=== PATIENT | male | born 1950 | race Caucasian/White ===

== ENCOUNTER 2019-03-27 12:31 | Outpatient (REF) | payer MEDICARE, BC, SELFPAY ==
[2019-03-27 21:32] LABS: ALT 28 U/L (16-63); AST 21 U/L (15-37); Alkaline Phosphatase 65 U/L (46-116); Anion Gap 9.9 mmol/L (3-11); BUN 21 mg/dL (7-18); Bilirubin, Total 0.3 mg/dL (0.2-1.0); CO2 27.1 mmol/L (21.0-32.0); CREATININE 0.93 mg/dL (0.70-1.30); Calcium 9.3 mg/dL (8.5-10.1); Chloride 104 mmol/L (98-107); Glucose 120 mg/dL (70-100); LDH 196 U/L (85-227); Potassium 4.4 mmol/L (3.5-5.1); Sodium 141 mmol/L (136-145); Total Protein 6.4 g/dL (6.4-8.2)
[2019-03-27 21:34] LABS: Abs Immature Grans 0.02 k/cumm (0.0-0.09); Absolute Basophil Count 0.02 k/cumm (0.0-0.2); Absolute Eosinophil Count 0.06 k/cumm (0.0-0.7); Absolute Lymphocyte Count 5.19 k/cumm (1.2-3.4); Absolute Monocyte Count 0.63 k/cumm (0.11-0.7); Absolute Neutrophil Count 4.36 k/cumm (1.2-6.7); Basophils % 0.2; Eosinophils % 0.6; HCT 42.4 % (40.0-50.0); HGB 14.1 g/dL (13.5-17.5); Immature Grans % 0.2; Lymphocytes % 50.5; Mean Corp. HGB Concentration 33.3 g/dL (32.0-36.0); Mean Corpuscular Hemoglobin 29.9 pg (27.0-33.0); Mean Platelet Volume 11.2 fL (8.0-11.0); Monocytes % 6.1; Neutrophils % 42.4; Platelet Count 289 x1000/uL (130-400); RBC 4.71 m/cumm (4.50-6.00); RBC Distribution Width 12.8 % (11.8-14.1); White Blood Cell Count 10.28 k/cumm (4.4-10.8)
[2019-03-27 22:53] LABS: Diff Comment Diff Reviewed; RBC Morphology Normal
== END 2019-03-27 12:51 ==
LOC: NCHCN 12:31
PROVIDERS: PCP Internal Medicine; Visit Provider Internal Medicine
DX: C91.10 Chronic lymphocytic leukemia of B-cell type not having achieved remission (principal)
CPT/HCPCS: 80053; 83615; 85025

== ENCOUNTER 2019-10-08 07:25 | Outpatient (CLI) | payer MEDICARE, BC, SELFPAY ==
--- NOTE | 2019-10-08 | DI.RAD_ITS ---
EXAM: XR KNEE RT 3V AP,LAT,LEANDRA CLINICAL HISTORY: OSTEOARTHRITIS RT KNEE, M17.9, PAIN. TECHNIQUE: 2D digital imaging was performed. COMPARISON: No exams were available for comparison FINDINGS: BONES: No acute fracture is present. Mild periarticular spurring is seen in the lateral femoral tibia l joint space in the posterior patella. Small enthesophyte is seen at the superior patella. JOINTS: The knee is normally aligned. No joint effusion is seen. There is chondrocalcinosis present. Mild narrowing of the femoral tibial joint space is present. SOFT TISSUE: Normal. IMPRESSION: Mild degenerative changes of the right knee. DATA REPOSITORY: RADIATION DOSE DELIVERED:
== END 2019-10-08 07:45 ==
PROVIDERS: PCP Internal Medicine; Visit Provider Internal Medicine
DX: M25.561 Pain in right knee (principal); M17.11 Unilateral primary osteoarthritis, right knee
CPT/HCPCS: 73562

== ENCOUNTER 2019-10-23 11:35 | Outpatient (CLI) | payer MEDICARE, BC, SELFPAY ==
--- NOTE | 2019-10-23 11:00 | DI.RAD_ITS ---
EXAM: XR KNEES MERCHANT ONLY CLINICAL HISTORY: right knee pain TECHNIQUE: COMPARISON: CR XR KNEE RT 3V AP,LAT,LEANDRA from 10/08/2019 FINDINGS: Bilateral Merchant views were obtained and show essentially normal alignment the patellas at the serrano llofemoral joints. Mild marginal osteophyte formation noted bilaterally involving the patella is. T here appears to be chondrocalcinosis of the articular cartilage of the patellofemoral joints jg robin. IMPRESSION:
== END 2019-10-23 11:55 ==
PROVIDERS: PCP Internal Medicine; Referring Provider Internal Medicine; Visit Provider Student in an Organized Health Care Education/Training Program
DX: M25.561 Pain in right knee (principal); M25.761 Osteophyte, right knee; M11.261 Other chondrocalcinosis, right knee; M23.91 Unspecified internal derangement of right knee; M17.11 Unilateral primary osteoarthritis, right knee
CPT/HCPCS: 73565; 99203

== ENCOUNTER 2019-10-28 00:58 | Outpatient (CLI) | payer MEDICARE, BC, SELFPAY ==
--- NOTE | 2019-10-28 07:30 | DI.MRI_ITS ---
EXAM: MR LOWER JOINT RT WO CLINICAL HISTORY: right knee pain after injury,INTERNAL DERANGEMENT,CHONDROCALCINOSIS,OA,. TECHNIQUE: Multiplanar multisequence MRI was performed. COMPARISON: CR XR KNEE RT 3V AP,LAT,LEANDRA from 10/08/2019 CR XR KNEES MERCHANT ONLY from 10/23/2019 FINDINGS: BONES: There is marrow edema involving the lateral tibial plateau. No evidence of a fracture is seen . There is also mild marrow edema in the lateral aspect of the lateral femoral condyle. JOINTS: There is articular cartilage loss over the lateral aspect of the lateral tibial plateau. The re is a moderate joint effusion. TENDONS: Extensor mechanism: Unremarkable. Medial retinaculum: Unremarkable. Lateral retinaculum: Unremarkable. Popliteus: There does appear to be thickening and mild increased signal in the popliteus tendon at it s insertion site. This may represent a strain or partial tear. MUSCLES: Unremarkable. MENISCI: The medial meniscus is unremarkable. There is a large tear of the lateral meniscus involvin g the anterior horn, body and posterior horn. SOFT TISSUES: Unremarkable. LIGAMENTS: Anterior Cruciate: Unremarkable. Posterior Cruciate: Unremarkable. Medial Collateral:Unremarkable. Lateral Collateral: Hyperintense signal is seen the proximal portion of the lateral collateral ligame nt. This may represent a partial tear or sprain. OTHER: There is a 7 cm long popliteal cyst. IMPRESSION: 1. Tear involving the anterior horn, body and posterior horn of the lateral meniscus. 2. Hyperintense signal is seen in the proximal lateral collateral ligament suspicious for a tear or s prain. 3. Mild hyperintense signal and thickening of the popliteus tendon at its insertion site suspicious f or partial tear or strain. 4. Contusions involving lateral aspects of both the lateral femoral condyle and the lateral tibial pl ateau. DATA REPOSITORY:
== END 2019-10-28 01:18 ==
PROVIDERS: PCP Internal Medicine; Visit Provider Physician Assistant
DX: M25.561 Pain in right knee (principal); M23.91 Unspecified internal derangement of right knee; S83.271A Complex tear of lateral meniscus, current injury, right knee, initial encounter; S83.421A Sprain of lateral collateral ligament of right knee, initial encounter
CPT/HCPCS: 73721

== ENCOUNTER → 2019-11-09 08:46 | Outpatient (BNVA) | payer MEDICARE, BC, SELFPAY | PROVIDERS: PCP Internal Medicine; Referring Provider Internal Medicine; Visit Provider Student in an Organized Health Care Education/Training Program | DX: S83.271D Complex tear of lateral meniscus, current injury, right knee, subsequent encounter (principal); X58.XXXD Exposure to other specified factors, subsequent encounter; Z01.818 Encounter for other preprocedural examination | CPT/HCPCS: 99213 ==

== ENCOUNTER 2019-11-13 09:06 | Outpatient (CLI) | payer MEDICARE, BC, SELFPAY ==
[2019-11-13 23:33] LABS: COVID-19 RT-PCR UVMMC Result Negative (Negative)
== END 2019-11-13 09:26 ==
PROVIDERS: PCP Internal Medicine; Visit Provider Student in an Organized Health Care Education/Training Program
DX: Z01.818 Encounter for other preprocedural examination (principal); Z03.818 Encounter for observation for suspected exposure to other biological agents ruled out
CPT/HCPCS: U0003

== ENCOUNTER 2019-11-17 06:16 | Day surgery (SDC) | payer MEDICARE, BC, SELFPAY ==
[2019-11-17 06:22] VITALS: BP 149/86; PULSE 62; RESP 17; TEMP 36.9; O2SAT 99
[2019-11-17] MEDS: Lactated Ringers 1,000 ML 80 ML IV (06:59)
--- NOTE | 2019-11-17 07:11 | PDOC.DSDIS_ITS ---
Discharge Plan Disposition Patient Disposition: HOME Condition: Good Discharge Details Reason For Visit: Right Lateral Meniscus Tear Attending Provider: Carlos Mckinley Primary Care Provider: Seth Mars Home Meds and New Rx's Prescriptions: New acetaminophen 500 mg tablet 500 mg PO Q6H PRN (Reason: pain) Qty: 60 RF: 3 ibuprofen 600 mg tablet 600 mg PO TID PRNQty: 60 RF: 3 hydrocodone-acetaminophen 5-325 mg tablet 1 tab PO Q6H PRN (Reason: pain) Qty: 12 RF: 0 Continued aspirin [Aspir-81] 81 MG tablet,delayed release (DR/EC) 81 mg PO DAILY RF: 0 multivitamin 1 EACH capsule 1 ea PO DAILY RF: 0 Discontinued naproxen sodium [Aleve] 220 MG capsule 220 mg PO DAILY PRNRF: 0 Discharge Instructions Stand Alone Forms: Elías Knee Arthroscopy Referrals: Carlos Mckinley MD [ [facility] STAFF PHYSICIAN] - Equipment/Supplies: Partial Weight Bearing Crutches Activity:: Elevate Remove Dressings/Wound Care:: 72 hours Shower/Bathe:: 72 hours Diet:: As Tolerated Discharge Orders Discharge Orders: Discharge Order (Routine); Ordered 11/17/19 Ordered By: Carlos Mckinley DS: Diagnosis Discharge Diagnosis (1) Tear of lateral meniscus of right knee: Status: Acute
[2019-11-17] MEDS: ceFAZolin 2 GM/50 ML BAG IVPB (07:26)
[2019-11-17] MEDS: Bupivacaine 0.5% Pres-Free 30 ML VIAL (07:45)
[2019-11-17 08:30] VITALS: BP 135/73; PULSE 67; RESP 12; TEMP 36.6; O2SAT 100
[2019-11-17 08:35] VITALS: BP 137/77; PULSE 57; RESP 15; TEMP 36.6; O2SAT 100
[2019-11-17 08:40] VITALS: BP 142/78; PULSE 62; RESP 12; TEMP 36.6; O2SAT 100
[2019-11-17 08:55] VITALS: BP 157/79; PULSE 67; RESP 15; TEMP 36.6; O2SAT 100
[2019-11-17] MEDS: Acetaminophen 325 MG TAB 650 MG PO (09:34)
[2019-11-17 09:49] VITALS: BP 136/77; PULSE 64; RESP 18; TEMP 36.6; O2SAT 99
--- NOTE | 2019-11-17 19:02 | W.PM.OP ---
Date of service: 11/17/19 Time of Service: 08:31 Operative Note Operative Note DATE OF PROCEDURE: 11/17/19 PRE-OP DIAGNOSIS: Right Lateral Meniscus Tear POST-OP DIAGNOSIS: other (Right Lateral Meniscus Tear, Right Medial Meniscus Tear, Right Knee Chondrocalcinosis) PROCEDURE: Right Knee Arthroscopic Partial Lateral and Medial Menisectomy SURGEON: Carlos Mckinley ANESTHESIA: GETA ESTIMATED BLOOD LOSS: 0 PATHOLOGY: none sent TOURNIQUET TIME: 0 COMPLICATIONS: None Patient was transported to: PACU Patient's condition: stable Indications: I have seen Mukund in clinic for symptoms of a meniscus tear. This was confirmed based on MRI and exam findings. Nonoperative measures were exhausted but disability and pain persisted. I discussed knee arthroscopy with meniscal intervention with the patient. I reviewed the risks of the procedure to include, but not limited to, bleeding, infection, pain, stiffness, damage to nerves or vessels, recurrence, blood clot. Despite these risks, the patient elected to proceed. Findings: A diagnostic arthroscopy was performed with the following findings: Suprapatellar Pouch: Moderate inflammatory changes and synovitis, no loose bodies Medial Compartment: Complex tearing of the anterior body of the medial meniscus, intact meniscal root, no significant chondromalacia or signs of arthritis, no loose bodies, crystalline disease seen within the meniscus Notch: ACL and PCL were intact Lateral Compartment: Complex meniscal tear involving almost the entirety of the lateral meniscus, intact meniscal root, focal areas of grade 3 and grade IV chondromalacia with global grade 2 changes?areas of grade 4 were less than 3 to 4 mm in diameter, no loose bodies Patellofemoral Compartment: Grade II chondromalacia of the apex, no apparent patellar maltracking Procedure Description: Mukund was greeted in the preoperative holding area where the correct side was identified and marked. The consent was reviewed with the patient and signed. The history and physical was updated. All questions were answered. Mukund was taken back to the operating room. The patient was placed into the supine position on the operating room table. A nonsterile tourniquet was placed high onto the leg but not used. All bony prominences were well padded. Prophylactic antibiotics in the form of cefazolin were administered. The right leg was then prepped with Chloraprep and draped in a standard fashion with stockinette and extremity drape. A timeout to confirm correct identity, side and site, procedure, allergies, anesthesia, and medical concerns was performed. The leg was placed into a pneumatic leg wilson, [id number]. A standard lateral portal was made at the lateral border of the patella tendon in line with the inferior pole of the patella, soft spot. The skin and deep tissue was incised sharply and the blunt trochar was inserted atraumatically. A diagnostic arthroscopy was performed and the findings are listed above. The suprapatellar pouch had some moderate inflammatory changes with synovitis. The patellofemoral articulation showed areas of grade II chondromalacia of the apex as well as good tracking. The lateral gutter had no loose bodies and the medial gutter had no loose bodies. The knee was brought into some valgus stress in extension to open the medial compartment. A medial portal was made, localized by a spinal needle. The portal was created with an #11 blade through skin and capsule under direct visualization avoiding any meniscal injury. A probe was then inserted into the medial compartment. The medial compartment was fully inspected. The chondral surface of the tibia showed no significant chondromalacia and the surface of the femur showed no significant chondromalacia. The medial meniscus had crystalline deposits seen throughout. There was some degeneration of the meniscus and a complex tear of the anterior body. After evaluation, the meniscus was debrided down to a stable base using a series of biters and arthroscopic mesfin. It was probed afterwards to confirm that the tear had been removed and the meniscus was stable. The notch was then inspected which showed an intact ACL and an intact PCL. The leg was then brought into a figure of 4 position. The lateral compartment was fully inspected with the arthroscope and a probe. The chondral surface of the lateral femur showed global grade II chondromalacia with some areas of grade III chondromalacia throughout the entirety of the lateral femur. The chondral surface of the lateral tibia showed global grade 2/3 changes with some areas of focal grade IV chondromalacia, less than 3 to 4 mm in diameter. The lateral meniscus had a complex tear extending from the anterior horn all the way through the posterior horn and close to the root there were both horizontal and radial components to the tear with a larger radial component at the level of the popliteal hiatus. After evaluation, the meniscus was debrided down to a stable base using a series of biters and arthroscopic mesfin. It was probed afterwards to confirm that the tear had been removed and the meniscus was stable. Cartilage surfaces were debrided of any flaps, leaving any intact fibers. The arthroscope was brought back into the suprapatellar pouch and the leg was in full extension. The knee was thoroughly irrigated with the arthroscopic fluid on high flow and pressure. Inflow was stopped and excess fluid was removed. The wounds were closed with 4-0 Nylon. They were dressed with Xeroform, 4x4 gauze, ABD pad, Kerlix and an LEO wrap. A cryo-cuff was applied. The patient tolerated the procedure well and was returned to the Same Day Surgery area in a stable condition suffering no known complication.
== END 2019-11-17 10:50 | disposition home or self-care (01) ==
PROVIDERS: PCP Internal Medicine; Visit Provider Student in an Organized Health Care Education/Training Program
PROC: (CPT 29870; principal; 2019-11-17 07:30)
DX: S83.271A Complex tear of lateral meniscus, current injury, right knee, initial encounter (principal); S83.231A Complex tear of medial meniscus, current injury, right knee, initial encounter; X58.XXXA Exposure to other specified factors, initial encounter; M11.261 Other chondrocalcinosis, right knee; M65.88 Other synovitis and tenosynovitis, other site
CPT/HCPCS: 29880; E0114; J0690; J1100; J1885; J2405; J2704

== ENCOUNTER → 2019-11-30 14:45 | Outpatient (BNVA) | payer MEDICARE, BC, SELFPAY | PROVIDERS: PCP Internal Medicine; Referring Provider Internal Medicine; Visit Provider Student in an Organized Health Care Education/Training Program | DX: S83.271D Complex tear of lateral meniscus, current injury, right knee, subsequent encounter (principal); X58.XXXD Exposure to other specified factors, subsequent encounter ==

== ENCOUNTER → 2019-12-28 10:17 | Outpatient (BNVA) | payer MEDICARE, BC, SELFPAY | PROVIDERS: PCP Internal Medicine; Referring Provider Internal Medicine; Visit Provider Student in an Organized Health Care Education/Training Program | DX: Z47.89 Encounter for other orthopedic aftercare (principal) ==

== ENCOUNTER 2020-05-26 22:36 | Outpatient (REF) | payer MEDICARE, BC, SELFPAY ==
[2020-05-26 20:54] LABS: Abs Immature Grans 0.01 10^3/uL (0.0-0.06); HCT 41.7 % (40.0-50.0); HGB 13.9 g/dL (13.5-17.5); MCH 30.1 pg (27.0-33.0); MCHC 33.3 % (32.0-36.0); MCV 90.3 fL (80-95); Nucleated RBC 0 %; Platelet Count 285 10^3/uL (130-400); RBC 4.62 10^6/uL (4.36-5.78); RDW 12.9 % (11.8-14.1); RDW-SD 42.7 fL; WBC 10.27 10^3/uL (4.4-10.8)
[2020-05-26 21:16] LABS: ALT 28 U/L (16-63); AST 14 U/L (15-37); Albumin 3.9 g/dL (3.4-5.0); Alkaline Phosphatase 60 U/L (46-116); Anion Gap 6.4 mmol/L (3-11); BUN 17 mg/dL (7-18); Bilirubin, Total 0.3 mg/dL (0.2-1.0); CO2 29.6 mmol/L (21.0-32.0); Calcium 9.4 mg/dL (8.5-10.1); Chloride 108 mmol/L (98-107); Glucose 122 mg/dL (74-106); LDH 161 U/L (85-227); Potassium 4.1 mmol/L (3.5-5.1); Sodium 144 mmol/L (136-145); Total Protein 6.4 g/dL (6.4-8.2)
[2020-05-26 21:26] LABS: Absolute Eosinophil Count 0.21 10^3/uL (0.0-0.7); Absolute Lymphocyte Count 5.44 10^3/uL (1.2-3.4); Absolute Monocyte Count 0.51 10^3/uL (0.1-0.8); Absolute Neutrophil Count 4.11 10^3/uL (1.2-6.7); Atypical Lymphocytes % 4; Diff Comment Manual Differential; RBC Morphology Normal
== END 2020-05-26 22:56 ==
LOC: NCHCN 22:36
PROVIDERS: PCP Internal Medicine; Visit Provider Internal Medicine
DX: C91.10 Chronic lymphocytic leukemia of B-cell type not having achieved remission (principal)
CPT/HCPCS: 80053; 83615; 85025

== ENCOUNTER 2021-03-03 10:40 | Outpatient (REF) | payer MEDICARE, BC, SELFPAY ==
[2021-03-03 14:20] LABS: Abs Immature Grans 0.02 10^3/uL (0.0-0.06); Absolute Basophil Count 0.07 10^3/uL (0.0-0.2); Absolute Eosinophil Count 0.12 10^3/uL (0.0-0.7); Absolute Lymphocyte Count 4.23 10^3/uL (1.2-3.4); Absolute Monocyte Count 0.49 10^3/uL (0.1-0.8); Absolute Neutrophil Count 3.45 10^3/uL (1.2-6.7); Basophils % 0.8; Eosinophils % 1.4; HCT 44.6 % (40.0-50.0); HGB 14.6 g/dL (13.5-17.5); Immature Grans % 0.2; Lymphocytes % 50.5; MCH 29.9 pg (27.0-33.0); MCHC 32.7 % (32.0-36.0); MCV 91.2 fL (80-95); MPV 11.3 fL (8.0-11.0); Monocytes % 5.8; Neutrophils % 41.3; Nucleated RBC 0 %; Platelet Count 277 10^3/uL (130-400); RBC 4.89 10^6/uL (4.36-5.78); RDW 12.5 % (11.8-14.1); RDW-SD 41.2 fL; WBC 8.38 10^3/uL (4.4-10.8)
== END 2021-03-03 10:41 | disposition home or self-care (01) ==
LOC: NCHCN 10:40
PROVIDERS: PCP Internal Medicine; Visit Provider Family Medicine
DX: C91.10 Chronic lymphocytic leukemia of B-cell type not having achieved remission (principal); Z00.00 Encounter for general adult medical examination without abnormal findings; M54.16 Radiculopathy, lumbar region
CPT/HCPCS: 85025

== ENCOUNTER 2021-12-01 18:04 | Outpatient (REF) | payer MEDICARE, SELFPAY ==
[2021-12-01 16:51] LABS: Abs Immature Grans 0.01 10^3/uL (0.0-0.06); Absolute Basophil Count 0.06 10^3/uL (0.0-0.2); Absolute Eosinophil Count 0.07 10^3/uL (0.0-0.7); Absolute Lymphocyte Count 3.21 10^3/uL (1.2-3.4); Absolute Monocyte Count 0.59 10^3/uL (0.1-0.8); Absolute Neutrophil Count 3.65 10^3/uL (1.2-6.7); Basophils % 0.8; Eosinophils % 0.9; HCT 43.3 % (40.0-50.0); HGB 14.4 g/dL (13.5-17.5); Immature Grans % 0.1; Lymphocytes % 42.3; MCH 29.4 pg (27.0-33.0); MCHC 33.3 % (32.0-36.0); MCV 89 fL (80-95); MPV 11.2 fL (8.0-11.0); Monocytes % 7.8; Neutrophils % 48.1; Platelet Count 273 10^3/uL (130-400); RBC 4.89 10^6/uL (4.36-5.78); RDW 12.7 % (11.8-14.1); RDW-SD 41.4 fL; WBC 7.59 10^3/uL (4.4-10.8)
[2021-12-01 18:11] LABS: ALT 27 U/L (16-63); AST 18 U/L (15-37); Alkaline Phosphatase 57 U/L (46-116); Anion Gap 9.6 mmol/L (3-11); BUN 20 mg/dL (7-18); Bilirubin, Total 0.4 mg/dL (0.2-1.0); CO2 26.4 mmol/L (21.0-32.0); Calcium 9.5 mg/dL (8.5-10.1); Chloride 106 mmol/L (98-107); Glucose 104 mg/dL (74-106); Potassium 4.3 mmol/L (3.5-5.1); Sodium 142 mmol/L (136-145); TSH (W/Ref FT4) 1.96 uIU/mL (0.36-3.74); Total Protein 6.7 g/dL (6.4-8.2)
[2021-12-01 18:50] LABS: Folate > 20.0 ng/mL (8.6-20.0); Vitamin B12 671 pg/mL (193-986)
== END 2021-12-01 18:05 | disposition home or self-care (01) ==
LOC: NCHCN 18:04
PROVIDERS: PCP Internal Medicine; Visit Provider Family Medicine
DX: R41.81 Age-related cognitive decline (principal)
CPT/HCPCS: 80053; 82607; 82746; 84443; 85025

== ENCOUNTER 2021-12-27 11:45 | Outpatient (REF) | payer MEDICARE, SELFPAY ==
--- NOTE | 2021-12-27 10:30 | SKI_PTH ---
PATIENT: Mukund Romano LOC: [facility] U#:[id number] AGE/SX: 71/M ROOM: RE12/27/[address]: Kulwinder Burgos : 1950 BED: DIS: 12/27/2021 SPEC #: [id number] RECD: 12/27/21 18:24 STATUS: MELLO REQ #: [id number] DHRUV: 12/27/21 10:[address]: Kulwinder Burgos DEPT: Surgical Specimen RECD BY: Tonya Norwood ENTERED: 12/27/21 18:25 SP TYPE: MICHELLE ROMERO DR: Seth Mars Tissues: 1 - SKIN BIOPSY(SHAVE/PUNCH) 2 - SKIN BIOPSY(SHAVE/PUNCH) Procedures: IMMUNOPEROXIDASE STAIN SKIN LEVEL 4 Comments: [id number]
== END 2021-12-27 11:46 | disposition home or self-care (01) ==
LOC: NCHCN 11:45
PROVIDERS: PCP Internal Medicine; Visit Provider Family Medicine
DX: C43.59 Malignant melanoma of other part of trunk (principal)
CPT/HCPCS: 88305; 88361

== ENCOUNTER → 2022-01-11 09:49 | Outpatient (BNVA) | payer MEDICARE, SELFPAY | PROVIDERS: PCP Internal Medicine; Referring Provider Internal Medicine; Visit Provider Surgery | DX: C43.9 Malignant melanoma of skin, unspecified (principal); R33.8 Other retention of urine; N13.8 Other obstructive and reflux uropathy; L57.0 Actinic keratosis; L82.1 Other seborrheic keratosis; Z87.891 Personal history of nicotine dependence | CPT/HCPCS: 99214; 99243 ==

== ENCOUNTER → 2022-02-12 09:00 | Outpatient (BNVA) | payer MEDICARE, SELFPAY | PROVIDERS: PCP Internal Medicine; Referring Provider Internal Medicine; Visit Provider Surgery | DX: C43.9 Malignant melanoma of skin, unspecified (principal) | CPT/HCPCS: 99213 ==

== ENCOUNTER 2022-02-20 07:03 | Day surgery (SDC) | payer MEDICARE, SELFPAY ==
[2022-02-20] VITALS (10 sets, daily range): BP systolic 117–141; BP diastolic 56–80; PULSE 44–74; RESP 11–18; TEMP 36.2–36.8; O2SAT 98–100; BMI 23.3
--- NOTE | 2022-02-20 06:30 | DI.NM_ITS ---
Exam(s) NM SENTNODE INJ AND SCAN EXAM: NM SENTNODE INJ AND SCAN CLINICAL HISTORY: WHOLE BODY lymphscintigraphy preOP,melanoma, c43.9. TECHNIQUE: Injected Dose: 1 mCi Tc-99m filtered sulfur colloid Images: 60 minutes COMPARISON: No exams were available for comparison. FINDINGS: Radiopharmaceutical subcutaneous injection was made over the back, slightly right of center. There is intense uptake in the nipple in the region of the administered sulfur colloid. There is a sm all focal area of increased uptake along the right axilla consistent with a sentinel node. This was m arked with marker by the technologist. There few other foci of increased uptake (less intense) highe r up in the right axilla as well as in the opposite-left axilla. Images of the groins reveal no abnormal significant focal uptake on either side. IMPRESSION: 1. Bucklin node uptake in the right axilla. Other findings as above. No abnormal uptake in either groin. DATA REPOSITORY:
--- NOTE | 2022-02-20 07:41 | HPE_ITS ---
Date of service: 02/20/22 Time of Service: 07:41 Assessment and Plan Assessment and plan (1) Melanoma: Status: Acute Assessment and plan: We reviewed his previous pathology report, and I discussed the plan for wide local excision. I explained that the wound may not be amenable to primary closure, and may need negative pressure wound therapy. We also discussed the technique of sentinel lymph node biopsy. He expressed informed consent, we will make plans to proceed for the day. History of Present Illness History of Present Illness Chief Complaint: Melanoma Narrative: Mukund is a 71-year-old male who had a lesion on the right side of his back. He underwent an excisional biopsy that was consistent with a 2.4 mm melanoma. He is here today for wide local excision and sentinel lymph node biopsy [facility] All Active Problems Internal derangement of right knee (Acute) Chondrocalcinosis of right knee (Acute) Degenerative joint disease of right knee (Acute) Tear of lateral meniscus of right knee (Acute) s/p right knee arthroscopy Partial Lateral and Medial Menisectomy DOS: 11/17/19 Melanoma (Acute ~12/28/21) right thorax Actinic keratosis due to exposure to sunlight (Acute) Seborrheic keratoses (Acute) Sun-damaged skin (Acute) Smoking hx (Acute) Nail dystrophy (Acute) Pain, foot (Acute) Medical History Hydronephrosis, bilateral (09/01/15) Obstructive uropathy Obstructive uropathy Obstructive uropathy (09/01/15) Sciatica of right side Urinary retention Urinary retention (09/01/15) Surgical History Hx of tonsillectomy Hx of transurethral resection of prostate Social History Smoking/Tobacco Use Status: Former Tobacco Use tobacco type: cigarettes Quit Date: 05/20/74 Pack-years: 2 Tobacco: How many years used: 4 Smoking risk assessment performed?: Yes Drug use: Never Substance use type: does not use Current gender identity: male Do you feel safe at home: Yes Do you feel safe in your relationship?: Yes Meds Allergies and Home Medications Allergies Allergy/AdvReac Type Severity Reaction Status Date / Time No Known Allergies Allergy Verified 02/19/22 13:56 Home Medications Medication Instructions Recorded Confirmed Type aspirin 81 mg tablet,delayed 81 mg PO DAILY 08/28/15 02/19/22 History release (Aspir-) multivitamin 1 ea PO DAILY 08/28/15 02/19/22 History acetaminophen 500 mg tablet 1,000 mg PO Q6H PRN 01/08/22 02/19/22 History (Tylenol Extra Strength) naproxen sodium 220 mg capsule 220 mg PO BID PRN 01/08/22 02/19/22 History (Aleve) vitamin B complex (B 1 tab PO DAILY 02/12/22 02/19/22 History Complex-Vitamin B12 tablet) Exam Const General: cooperative, healthy appearing, comfortable and no acute distress HENMT Head: normal to inspection Neck Neck: normal visual inspection, full ROM and no lymphadenopathy Thyroid: thyroid normal Chest Chest: normal inspection of the chest Resp Effort & Inspection: normal respiratory effort and able to speak in complete sentences Auscultation: clear to auscultation bilaterally Cardio Jugular venous pressure: no JVD Rate: regular rate Rhythm: regular rhythm Heart Sounds: S1 normal and S2 normal GI Inspection: normal to inspection Back/Spine/Pelvis Back/spine/pelvis image: 1. previous melanoma site, pink Neuro General: patient alert, patient awake and patient oriented x3 Extrem Right upper extremity: no edema Left upper extremity: no edema Results Last Vital Signs Pulse 74 02/20/22 07:23 Resp 16 02/20/22 07:23 BP 129/80 02/20/22 07:23 Pulse Ox 100 02/20/22 07:23
--- NOTE | 2022-02-20 08:19 | W.ANESPRE ---
General Info Date of Service Date Performed: 02/20/22 Height: 6 ft 3 in Weight: 84.9 kg Body Mass Index (BMI): 23.3 Surgical Procedure: Operation Date: 02/20/22 09:40 Proposed Procedure Side Surgeon p Excision Melanoma with Wide Margins Zackary Gary MD s Sentinal Node Biopsy Axillary Node Dissection Rt vs Lt vs Bi-Lat Zackary Gary MD Meds Allergies and Home Medications Allergies Allergy/AdvReac Type Severity Reaction Status Date / Time No Known Allergies Allergy Verified 02/19/22 13:56 Home Medication Medication Instructions Recorded aspirin 81 mg tablet,delayed 81 mg PO DAILY 08/28/15 release (Aspir-) multivitamin 1 ea PO DAILY 08/28/15 acetaminophen 500 mg tablet 1,000 mg PO Q6H PRN 01/08/22 (Tylenol Extra Strength) naproxen sodium 220 mg capsule 220 mg PO BID PRN 01/08/22 (Aleve) vitamin B complex (B 1 tab PO DAILY 02/12/22 Complex-Vitamin B12 tablet) Current Visit Medications: Current Medications Generic Name Dose Route Start Last Admin Trade Name Rodrigue PRN Reason Stop Dose Admin Ringer's Solution 1,000 mls @ 80 mls/hr 02/20/22 06:00 IV 02/20/22 23:59 INFUSION VIRGINIE Cefazolin Sodium/Dextrose 2 gm in 50 mls @ 100 mls/hr 02/20/22 06:00 Ancef Duplex IVPB 02/20/22 23:59 PREOP VIRGINIE IV Miscellaneous Supplies 1 each 02/20/22 06:00 Iv Access IV 02/20/22 23:59 DIRECTED VIRGINIE Sodium Chloride 0 ml 02/20/22 06:00 Normal Saline Flush 10 Ml Syr IV 02/20/22 23:59 PRN PRN Sodium Chloride 0 ml 02/20/22 06:00 Normal Saline 10 Ml Vial IJ 02/20/22 23:59 DIRECTED PRN Sterile Water 0 ml 02/20/22 06:00 Water,Injection,Sterile 10 Ml Vial IJ 02/20/22 23:59 DIRECTED PRN PFSH Active Problems Active Problems: Problem Status Onset Code Internal derangement of right knee M23.91 Chondrocalcinosis of right knee M11.261 Degenerative joint disease of right knee M17.11 Tear of lateral meniscus of right knee S83.281A Melanoma ~12/28/21 C43.9 Actinic keratosis due to exposure to sunlight L57.0 Seborrheic keratoses L82.1 Sun-damaged skin L57.8 Smoking hx Z87.891 Nail dystrophy L60.3 Pain, foot M79.673 Medical History Medical History Hydronephrosis, bilateral (09/01/15) Obstructive uropathy Obstructive uropathy Obstructive uropathy (09/01/15) Sciatica of right side Urinary retention Urinary retention (09/01/15) Surgical History Surgical History Hx of tonsillectomy Hx of transurethral resection of prostate Tobacco Smoking/Tobacco Use Status: Former Tobacco Use Substance Use Substance use: Never Substance use type: does not use Vital Signs and Lab Results Vital Signs Most Recent Vital Signs in EMR: Most Recent Vital Signs Pulse Resp BP Pulse Ox 74 16 129/80 100 02/20/22 07:23 02/20/22 07:23 02/20/22 07:23 02/20/22 07:23 Lab Results Blood Type / Crossmatch: No Data to Display Complete Blood Count: No Data to Display Complete Metabolic Panel: No Data to Display Liver Function Panel: No Data to Display Coagulation Panel: No Data to Display Cardiac Panel: No Data to Display Arterial Blood Gas: No Data to Display Venous Blood Gas: No Data to Display Pancreas Panel: No Data to Display Thyroid Panel: No Data to Display Infectious Disease: No Data to Display Blood Cultures: No Data to Display Toxicology Panel: No Data to Display Anesthesia Assessment and Plan Anesthesia History Personal History: No History of Anesthesia Complications Family History: No Family History of Anesthesia Complications Exercise Tolerance Exercise Tolerance: Metabolic Equivalents>4 Pertinent Negatives Pertinent Negatives: No Symptoms of GERD, No Major Cardiovascular Symptoms or Complaints, No Major Pulmonary Symptoms or Complaints and No History of CVA/TIA Cardiac & Pulmonary Exam Cardiac Exam: Normal S1/S2 Heart Sounds Pulmonary Exam: Clear Bilateral Breath Sounds Implantable Cardiac Device Does patient have a Pacemaker or an ICD?: No Airway Exam Known Difficult Airway: No Mallampati Class: 1 Mouth Opening: Normal (> 3cm) Thyromental Distance: Greater than 3 cm Facial Hair: Full Howard Neck Range of Motion: Full ROM Neck Circumference: Normal Teeth Condition: Normal Dentition ASA Classification ASA Score: ASA 2 Emergency Case?: No NPO Status NPO Status: NPO Clears >2 hours, Solids >8 hours Anesthesia Plan Resuscitation Status: Full Code Anesthesia Technique: General Anesthesia Airway Planned: Endotracheal Tube Monitors Used: Standard Monitors
[2022-02-20] MEDS: Lactated Ringers 1,000 ML 80 ML IV (10:00)
[2022-02-20] MEDS: ceFAZolin 2 GM/50 ML BAG IVPB (10:37)
--- NOTE | 2022-02-20 11:18 | SOFT_PTH ---
PATIENT: Mukund Romano LOC: [facility] U#:[id number] AGE/SX: 71/M ROOM: RE02/20/[address]: Zackary Gary MD : 1950 BED: DIS: 02/20/2022 SPEC #: [id number] RECD: 02/21/22 12:34 STATUS: MELLO REQ #: [id number] DHRUV: 02/20/22 11:[address]: Zackary Gary DEPT: Surgical Specimen RECD BY: Tonya Norwood ENTERED: 02/21/22 12:37 SP TYPE: SOFT OTHR DR: Seth Mars Tissues: 1 - SOFT TISSUE MISC (INC. LIPOMA) 2 - LYMPH NODE RESECTION Procedures: IMMUNOPEROXIDASE STAIN GROSS AND MICRO LEVEL 5 SKIN LEVEL 4 Comments: [id number] (ALL SPECIMENS RADIOACTIVE)
[2022-02-20] MEDS: Bupivacaine 0.5% Pres-Free W/EPI 30 ML VIAL ×2 (11:29→12:02)
--- NOTE | 2022-02-20 11:50 | W.PM.DSUDISC ---
Discharge Plan Disposition Patient Disposition: HOME Condition: Good Discharge Details Reason For Visit: Wide local excision and axillary lymph node biospy Attending Provider: Zackary Gary Primary Care Provider: Seth Mars Home Meds and New Rx's Prescriptions: New tramadol 50 mg tablet 50 mg PO Q8H MDD 3 tabs PRN (Reason: pain) Qty: 9 0RF Rx Instructions: Take 1 tablet by mouth every 8 hours as needed for severe pain. Continued vitamin B complex [B Complex-Vitamin B12] Tablet 1 tab PO DAILY acetaminophen [Tylenol Extra Strength] 500 mg tablet 1,000 mg PO Q6H PRN naproxen sodium [Aleve] 220 mg capsule 220 mg PO BID PRN aspirin [Aspir-81] 81 MG tablet,delayed release (DR/EC) 81 mg PO DAILY multivitamin 1 EACH capsule 1 ea PO DAILY Discharge Instructions Instructions: Lymph Node Biopsy (DC) Additional Instructions: 1. Resume all of your medications. 2. Okay to use tylenol and ibuprofen over the counter as needed. 3. Use tramadol as needed for severe pain. 4. Leave bandages in place for 24 hours, then remove. 5. Shower with warm soapy water. Pat dry. Use a bandaid if needed to protect your clothing. 6. No soaking or tub baths until I see you in the office. 7. No heavy lifting until I see you in the office. 8.Call the office (or go directly to the emergency room after hours) if you notice any of the following: Develop chills (warm to touch), or if you have a thermometer and your temperature is above 101 Difficulty breathing or difficultly swallowing Persistent vomiting Any bleeding ? exceeding one tablespoon 9. Call your physician if the site where your intravenous was started becomes red, swollen, painful, and warm to touch. 10. Be extremely careful with stretching the skin of your back. This would include things like reading over to tie your shoes, or as you transition from sitting to standing. Referrals: Zackary Gary MD [ [facility] STAFF PHYSICIAN] - (10-14 days for suture removal) Activity:: Activity as Tolerated Remove Dressings/Wound Care:: 24 hours Shower/Bathe:: 24 hours Diet:: As Tolerated Discharge Orders Discharge Orders: Discharge Order (Routine); Ordered 02/20/22 Ordered By: Zackary Gary DS: Diagnosis Discharge Diagnosis (1) Melanoma: Status: Acute Asessment and Plan: Follow-up in my office in 10 to 14 days for suture removal. I will contact you with results of the pathology reports as soon as they are available.
--- NOTE | 2022-02-20 12:45 | W.PM.OP ---
Date of service: 02/20/22 Time of Service: 12:45 Operative Note Operative Note DATE OF PROCEDURE: 02/20/22 PRE-OP DIAGNOSIS: Melanoma POST-OP DIAGNOSIS: same PROCEDURE: Wide local excision of melanoma from back, right-sided sentinel lymph node dissection SURGEON: Zackary Gary DISC PAD GRINDER: Lia Arambula Refer to Anesthesia Record ESTIMATED BLOOD LOSS: 50 PATHOLOGY: other (Melanoma excision site, right axillary sentinel lymph node) COMPLICATIONS: None Patient was transported to: PACU Patient's condition: stable Indications: Mukund is a 71-year-old male who underwent excisional skin biopsy that revealed a 2.4 mm melanoma. He returns for wide local excision and axillary sentinel lymph node biopsy Procedure Description: I began by escorting the patient over to nuclear medicine. Next, I gently prepped his back. I injected the epidermis with radionucleotide, and left the patient for imaging. Upon completion of the radionucleotide scan, we were able to identify a dominant lymph node in the right axillary region. Skin was marked by the technologist. Next, we moved to the operating room, and general anesthesia was induced. I then used some alcohol to prep the skin, and injected methylene blue into the epidermis. I massaged the skin for approximately 10 minutes. Next, I prepped and draped his back. I mapped out to centimeter margins on the skin and adjusted accordingly for an elliptical incision. The incision was oriented transversely in an effort to maximize mobilization of the skin for soft tissue coverage. Next, I anesthetized the skin to establish a local field block. I then incised the skin with 15 blade scalpel. I used sharp dissection down through the skin and subcutaneous tissues. Hemostasis was controlled with Bovie device. I dissected down to the fascia overlying the latissimus muscle. Once I reached approximately 2 cm deep to the skin edge, I undermined the specimen along the muscular fascia. Once the specimen was completely dissected free, it was elevated off the operative field, and marked with suture for proper orientation. 1 suture caballero the lateral aspect of the incision site. 2 sutures daniel the more cephalad portion. Final skin excision site measured 4-1/2 cm wide by 7 cm long by approximately 3 cm deep. Next, I irrigated the surgical field. There was minimal bleeding that was easily controlled with the Bovie. I then began manipulating the skin edges in an effort to close the incision. With a small amount of full-thickness mobilization, I was able to elevate a satisfactory portion of skin that appeared well vascularized. I approximated the deep tissues with interrupted Vicryl sutures. This brought the skin together nicely, without any inappropriate tension. Next, I approximated the deep skin edges using interrupted Vicryl's. Finally, the skin was approximated with interrupted nylon sutures. The skin was irrigated between each layer and a bandage was gently applied. Next, we turned our attention to the axillary lymph node sampling. Using a clean operative tray, we prepped and draped the right axilla. I anesthetized the skin with local anesthetic. I then incised the skin and dissected down to the subcutaneous fat using the scalpel and Bovie device. Once I was into the axillary fat pad, I performed gentle dissection guided by the radionucleotide sensor. I was able to identify an area of maximal radionucleotide signaling at 1200. I gently dissected the axillary fat pad, revealing a prominent blue lymph node. I used careful circumferential dissection to mobilize it out of the axilla. Once the specimen was freed, it was again tested with the Judah counter, and was consistently above 1200. I then turned my attention back to the axillary surgical field and examined it with the Judah counter. There was a small amount of signaling that never exceeded 150. Therefore, I irrigated the axillary field. There was a small amount of bleeding, that was controlled with the Bovie. Next, I approximated the deep fat with interrupted Vicryl stitches, and the skin was closed with a subcuticular running suture. Bandages were applied, the patient was allowed awaken from anesthesia and transferred to the recovery unit.
--- NOTE | 2022-02-20 14:19 | W.ANESPOSTOP ---
Postoperative Evaluation Date, Time and Location Date Performed: 02/20/22 Time Performed: 14:19 Patient Location: Day Surgery Unit Vital Signs Most Recent Imported Vital Signs: Most Recent Vital Signs Temp Pulse Resp BP Pulse Ox 36.5 C 47 L 16 122/67 99 02/20/22 13:55 02/20/22 13:55 02/20/22 13:55 02/20/22 13:55 02/20/22 13:55 Pain Score Most Recent Pain Score: Most Recent Pain Score Pain Level 0 02/20/22 13:55 Assessment Mental Status: Awake (Alert & Oriented to Patient Baseline) Airway and Respiratory Function: Patent airway with normal (patient baseline) respiratory exam Cardiovascular Function: Hemodynamically Stable Hydration Status: Adequately Hydrated Nausea & Vomiting: No Nausea or Vomiting Pain: Pt. Denies Any Pain Peripheral Nerve Block: Patient did not receive a nerve block
== END 2022-02-20 15:56 | disposition home or self-care (01) ==
PROVIDERS: PCP Internal Medicine; Visit Provider Surgery
PROC: (CPT 11606; principal; 2022-02-20 09:30)
PROC: (CPT 11606; 2022-02-20 09:30)
DX: C43.59 Malignant melanoma of other part of trunk (principal)
CPT/HCPCS: 11606; 38525; 12032; 78195; 88304; 88305; 88307; 88361; J0690; J1100; J1885; J2405; J2704

== ENCOUNTER → 2022-03-07 11:24 | Outpatient (BNVA) | payer MEDICARE, SELFPAY | PROVIDERS: PCP Internal Medicine; Referring Provider Internal Medicine; Visit Provider Surgery | DX: Z48.817 Encounter for surgical aftercare following surgery on the skin and subcutaneous tissue (principal) ==

== ENCOUNTER 2022-09-03 09:40 | Outpatient (REF) | payer MEDICARE, SELFPAY ==
[2022-09-03 15:42] LABS: Abs Immature Grans 0.02 10^3/uL (0.0-0.06); Absolute Basophil Count 0.02 10^3/uL (0.0-0.2); Absolute Eosinophil Count 0.05 10^3/uL (0.0-0.7); Absolute Lymphocyte Count 3.06 10^3/uL (1.2-3.4); Absolute Monocyte Count 0.35 10^3/uL (0.1-0.8); Absolute Neutrophil Count 4.94 10^3/uL (1.2-6.7); Basophils % 0.2; Eosinophils % 0.6; HCT 45.7 % (40.0-50.0); HGB 14.8 g/dL (13.5-17.5); Immature Grans % 0.2; Lymphocytes % 36.3; MCH 28.8 pg (27.0-33.0); MCHC 32.4 % (32.0-36.0); MCV 89 fL (80-95); MPV 11.4 fL (8.0-11.0); Monocytes % 4.1; Neutrophils % 58.6; Platelet Count 265 10^3/uL (130-400); RBC 5.14 10^6/uL (4.36-5.78); RDW 12.2 % (11.8-14.1); RDW-SD 40.1 fL; WBC 8.44 10^3/uL (4.4-10.8)
[2022-09-03 16:20] LABS: ALT 31 U/L (16-63); AST 20 U/L (15-37); Albumin 4.1 g/dL (3.4-5.0); Alkaline Phosphatase 64 U/L (46-116); Anion Gap 7.3 mmol/L (3-11); BUN 16 mg/dL (7-18); Bilirubin, Total 0.5 mg/dL (0.2-1.0); CO2 28.7 mmol/L (21.0-32.0); CREATININE 0.9 mg/dL (0.70-1.30); Calcium 9.9 mg/dL (8.5-10.1); Chloride 108 mmol/L (98-107); Estimated GFR 91.31 (mL/min/1.73m2); Glucose 93 mg/dL (74-106); Magnesium 2.1 mg/dL (1.8-2.4); Potassium 4.7 mmol/L (3.5-5.1); Sodium 144 mmol/L (136-145); Total Protein 6.7 g/dL (6.4-8.2)
== END 2022-09-03 09:41 | disposition home or self-care (01) ==
LOC: NCHCN 09:40
PROVIDERS: PCP Internal Medicine; Visit Provider Family Medicine
DX: R41.81 Age-related cognitive decline (principal); C91.10 Chronic lymphocytic leukemia of B-cell type not having achieved remission; N40.0 Benign prostatic hyperplasia without lower urinary tract symptoms
CPT/HCPCS: 80053; 83735; 85025

== ENCOUNTER 2023-02-28 14:18 | Outpatient (REF) | payer MEDICARE, SELFPAY ==
[2023-02-28 15:32] LABS: Abs Immature Grans 0.03 10^3/uL (0.0-0.06); Absolute Basophil Count 0.05 10^3/uL (0.0-0.2); Absolute Eosinophil Count 0.08 10^3/uL (0.0-0.7); Absolute Monocyte Count 0.67 10^3/uL (0.1-0.8); Absolute Neutrophil Count 6.34 10^3/uL (1.2-6.7); Basophils % 0.5; Eosinophils % 0.8; HCT 47.6 % (40.0-50.0); HGB 15.7 g/dL (13.5-17.5); Immature Grans % 0.3; Lymphocytes % 30.9; MCH 29.4 pg (27.0-33.0); MCV 89 fL (80-95); MPV 11.1 fL (8.0-11.0); Monocytes % 6.5; Platelet Count 295 10^3/uL (130-400); RBC 5.34 10^6/uL (4.36-5.78); RDW 12.8 % (11.8-14.1); RDW-SD 41.6 fL; WBC 10.37 10^3/uL (4.4-10.8)
[2023-02-28 15:45] LABS: ALT 26 U/L (16-63); AST 21 U/L (15-37); Albumin 4.5 g/dL (3.4-5.0); Alkaline Phosphatase 57 U/L (46-116); Anion Gap 8.1 mmol/L (3-11); BUN 18 mg/dL (7-18); Bilirubin, Total 0.6 mg/dL (0.2-1.0); CO2 28.9 mmol/L (21.0-32.0); CREATININE 0.9 mg/dL (0.70-1.30); Calcium 10.2 mg/dL (8.5-10.1); Chloride 103 mmol/L (98-107); Estimated GFR 91.31 (mL/min/1.73m2); Glucose 107 mg/dL (74-106); Magnesium 2.2 mg/dL (1.8-2.4); Potassium 4.5 mmol/L (3.5-5.1); Sodium 140 mmol/L (136-145); Total Protein 7.2 g/dL (6.4-8.2)
== END 2023-02-28 14:19 | disposition home or self-care (01) ==
LOC: NCHCN 14:18
PROVIDERS: PCP Internal Medicine; Visit Provider Family Medicine
DX: Z00.00 Encounter for general adult medical examination without abnormal findings; C34.90 Malignant neoplasm of unspecified part of unspecified bronchus or lung; R41.81 Age-related cognitive decline; M17.0 Bilateral primary osteoarthritis of knee
CPT/HCPCS: 80053; 83735; 85025

== ENCOUNTER → 2023-11-26 08:21 | Outpatient (BNVA) | payer MEDICARE, SELFPAY | PROVIDERS: PCP Family Medicine; Referring Provider Family Medicine; Visit Provider Podiatrist | DX: M79.672 Pain in left foot (principal); B07.0 Plantar wart; M67.02 Short Achilles tendon (acquired), left ankle; L84 Corns and callosities; B35.1 Tinea unguium | CPT/HCPCS: 17110 ==

== ENCOUNTER → 2023-12-24 09:08 | Outpatient (BNVA) | payer MEDICARE, SELFPAY | PROVIDERS: PCP Family Medicine; Referring Provider Family Medicine; Visit Provider Podiatrist | DX: B07.0 Plantar wart (principal); M79.672 Pain in left foot; M67.02 Short Achilles tendon (acquired), left ankle; L84 Corns and callosities; B35.1 Tinea unguium | CPT/HCPCS: 17110 ==

== ENCOUNTER 2024-03-03 16:02 | Outpatient (REF) | payer MEDICARE, SELFPAY ==
[2024-03-03 16:03] LABS: HCT 44.1 % (40.0-50.0); HGB 14.6 g/dL (13.5-17.5); MCH 30.4 pg (27.0-33.0); MCHC 33.1 % (32.0-36.0); MCV 92 fL (80-95); MPV 11.5 fL (8.0-11.0); Platelet Count 271 10^3/uL (130-400); RBC 4.81 10^6/uL (4.36-5.78); RDW 13.1 % (11.8-14.1); WBC 9.16 10^3/uL (4.4-10.8)
[2024-03-03 16:54] LABS: ALT 30 U/L (16-63); AST 27 U/L (15-37); Albumin 3.9 g/dL (3.4-5.0); Alkaline Phosphatase 76 U/L (46-116); Anion Gap 11.1 mmol/L (3-11); BUN 21 mg/dL (7-18); Bilirubin, Total 0.42 mg/dL (0.2-1.0); CO2 24.9 mmol/L (21.0-32.0); CREATININE 0.8 mg/dL (0.70-1.30); Calcium 9.6 mg/dL (8.5-10.1); Chloride 108 mmol/L (98-107); Estimated GFR 94.03 (mL/min/1.73m2); Glucose 102 mg/dL (74-106); Potassium 4.8 mmol/L (3.5-5.1); Sodium 144 mmol/L (136-145); Total Protein 6.7 g/dL (6.4-8.2)
== END 2024-03-03 16:03 | disposition home or self-care (01) ==
LOC: NCHCN 16:02
PROVIDERS: PCP Family Medicine; Visit Provider Family Medicine
DX: C91.10 Chronic lymphocytic leukemia of B-cell type not having achieved remission (principal)
CPT/HCPCS: 80053; 85027